=== PATIENT | male | born 1970 ===

== ENCOUNTER 2025-01-16 16:21 | Outpatient (REF) | payer BC, SELFPAY ==
[2025-01-16 14:36] LABS: HCT 45.0 % (40.0-50.0); HGB 15.3 g/dL (13.5-17.5); MCH 32.4 pg (27.0-33.0); MCHC 34.0 % (32.0-36.0); MCV 95 fL (80-95); MPV 10.7 fL (8.0-11.0); Platelet Count 259 10^3/uL (130-400); RBC 4.72 10^6/uL (4.36-5.78); RDW 12.1 % (11.8-14.1); RDW-SD 42.5 fL; WBC 8.63 10^3/uL (4.4-10.8)
[2025-01-16 15:06] LABS: ALT 36 U/L (16-63); AST 29 U/L (15-37); Albumin 4.5 g/dL (3.4-5.0); Alkaline Phosphatase 68 U/L (46-116); Anion Gap 7.4 mmol/L (3-11); BUN 14 mg/dL (7-18); Bilirubin, Total 0.5 mg/dL (0.2-1.0); CO2 31.6 mmol/L (21.0-32.0); Calcium 9.6 mg/dL (8.5-10.1); Calculated LDL 164 mg/dL (<100); Chloride 100 mmol/L (98-107); Cholesterol 278 mg/dL (<200); Estimated GFR 102.76 (mL/min/1.73m2); Glucose 123 mg/dL (74-106); HDL Cholesterol 46 mg/dL (>or=40); Potassium 4.0 mmol/L (3.5-5.1); Sodium 139 mmol/L (136-145); Total Protein 7.5 g/dL (6.4-8.2); Triglyceride 342 mg/dL (<150)
== END 2025-01-16 16:22 | disposition home or self-care (01) ==
LOC: NCHCN 16:21
PROVIDERS: PCP Physician Assistant; Visit Provider Physician Assistant
DX: Z13.220 Encounter for screening for lipoid disorders (principal); Z13.6 Encounter for screening for cardiovascular disorders; Z13.228 Encounter for screening for other metabolic disorders; Z00.00 Encounter for general adult medical examination without abnormal findings
CPT/HCPCS: 80053; 80061; 85027